=== PATIENT | male | born 1980 | race African-American/Black ===

== ENCOUNTER 2022-03-06 23:09 | Emergency (ER) | payer MEDICAID ==
[~2022-03-06] VITALS: Ht 175.3 cm; Wt 104.0 kg
[2022-03-06] MEDS ORDERED: DICYCLOMINE 10 MG/5 ML ORAL SYR PO STA (23:38)
[2022-03-06] MEDS ORDERED: MAGNESIUM/ALUMINUM HYDROXIDE/SIMETHICONE 30ML UDC PO STA (23:38)
[2022-03-07 01:48] LABS: HEMATOCRIT. 44.8 % (42.0-52.0); HEMOGLOBIN. 14.6 g/dL (14.0-18.0); MEAN CORPUSCULAR HEMOGLOBIN 29.1 pg (28.0-32.0); MEAN CORPUSCULAR VOLUME 89.2 fL (80.0-94.0); MEAN PLATELET VOLUME 8.7 fl (7.4-10.4); PLATELET 302 x1000/uL (130-400); RED BLOOD CELL COUNT 5.02 mill/uL (4.7-6.1); RED CELL DISTRIBUTION WIDTH 14.3 % (11.6-14.6)
[2022-03-07 01:58] LABS: CHLORIDE 108 mEq/L (98-107)
[2022-03-07 01:59] LABS: PROTHROMBIN TIME 10.7 sec (9.6-11.0)
[2022-03-07] MEDS ORDERED: DICYCLOMINE 10 MG/5 ML ORAL SYR PO NR (02:00)
[2022-03-07] MEDS ORDERED: MAGNESIUM/ALUMINUM HYDROXIDE/SIMETHICONE 30ML UDC PO NR (02:00)
[2022-03-07 02:57] LABS: PLATELET ESTIMATE NORMAL
[2022-03-07] MEDS ORDERED: DICY10CA88 MT (05:19)
[2022-03-07 05:50] VITALS: BP 151/99
== END 2022-03-07 05:50 | disposition home or self-care (01) ==
LOC: ER 23:09
DX: R10.13 Epigastric pain (principal); I10 Essential (primary) hypertension; D72.829 Elevated white blood cell count, unspecified
CPT/HCPCS: 36415; 80053; 85025; 99283

== ENCOUNTER 2025-06-17 13:43 | Emergency (ER) | payer MEDICAID, OTHER ==
[~2025-06-17] VITALS: Ht 172.7 cm; Wt 90.0 kg
[~2025-06-17 13:43] MED LIST: DICY-18 MT
[2025-06-17 13:47] VITALS: O2SAT 98
[2025-06-17 14:59] LABS: CLARITY URINE CLEAR (CLEAR); COLOR URINE DARK YELLOW (YELLOW); GLUCOSE URINE NEGATIVE (NEGATIVE); KETONES URINE TRACE (NEGATIVE); LEUKOCYTE ESTERASE URINE NEGATIVE (NEGATIVE); NITRITE URINE NEGATIVE (NEGATIVE); OCCULT BLOOD URINE 2+ (NEGATIVE); PH URINE 5.5 (4.5-8.0); PROTEIN URINE TRACE (NEGATIVE); SPECIFIC GRAVITY URINE 1.026 (1.005-1.030); UROBILINOGEN URINE 1.0 E.U./dL (0.2-1.0)
[2025-06-17 15:09] LABS: *AMPHETAMINES SCREEN URINE NEGATIVE (NEGATIVE); *BARBITURATES SCREEN URINE NEGATIVE (NEGATIVE); *BENZODIAZEPINES SCREEN URINE NEGATIVE (NEGATIVE); *COCAINE SCREEN URINE NEGATIVE (NEGATIVE)
[2025-06-17 15:10] LABS: CANNABINOID URINE SCREEN PRESUMPTIVE POSITIVE (NEGATIVE); ECSTASY MDMA SCREEN URINE NEGATIVE (NEGATIVE); METHADONE URINE SCREEN NEGATIVE (NEGATIVE); OPIATES URINE SCREEN NEGATIVE (NEGATIVE); PHENCYCLIDINE URINE SCREEN NEGATIVE (NEGATIVE)
[2025-06-17 15:14] LABS: BACTERIA URINE NONE SEEN; RBC URINE 0-2 /hpf (0-2); SQUAMOUS EPITHELIAL CELL URINE RARE /lpf (RARE/1+); WBC URINE 0-2 /hpf (0-2); YEAST URINE NONE SEEN
[2025-06-17 17:33] LABS: BASOPHILS % 0.7 % (0.0-2.0); EOSINOPHILS % 0.6 % (0.0-5.0); HEMATOCRIT. 47.7 % (42.0-52.0); HEMOGLOBIN. 15.6 g/dL (14.0-18.0); LYMPHOCYTES % 16.8 % (20.0-50.0); MEAN PLATELET VOLUME 9.6 fl (7.4-10.4); MONOCYTES % 10.1 % (2.0-8.0); NEUTROPHILS % 71.8 % (40.0-76.0); PLATELET 260 x1000/uL (130-400); RED BLOOD CELL COUNT 5.36 mill/uL (4.7-6.1); RED CELL DISTRIBUTION WIDTH 14.5 % (11.6-14.6)
[2025-06-17 17:54] LABS: CREATININE 0.8 mg/dL (0.6-1.3)
[2025-06-17 17:55] LABS: ETHANOL BLOOD < 10 mg/dL (<10); UREA NITROGEN BLOOD 7 mg/dL (9-23)
[2025-06-17 17:56] LABS: ASPARTATE AMINOTRANSFERASE 39 IU/L (<34); BILIRUBIN DIRECT 0.4 mg/dL (<=3.0)
[2025-06-17 17:57] LABS: BILIRUBIN TOTAL 1.9 mg/dL (0.1-1.0); PROTEIN TOTAL 8.3 g/dL (6.0-8.3)
[2025-06-17 18:47] VITALS: BP 121/81; PULSE 80; RESP 14; TEMP 36.6; O2SAT 98
[2025-06-17] MEDS ORDERED: AMOX1TAB16 MT (21:33)
[2025-06-17 22:22] LABS: CREATININE 0.8 mg/dL (0.6-1.3); UREA NITROGEN BLOOD 8 mg/dL (9-23)
[2025-06-17 22:24] LABS: ASPARTATE AMINOTRANSFERASE 17 IU/L (<34); BILIRUBIN TOTAL 2.1 mg/dL (0.1-1.0); PROTEIN TOTAL 7.2 g/dL (6.0-8.3)
== END 2025-06-17 22:44 | disposition home or self-care (01) ==
LOC: ER 13:47 → CMPBEDREQ 06-19 07:54
DX: R10.9 Unspecified abdominal pain (principal); I10 Essential (primary) hypertension; J45.909 Unspecified asthma, uncomplicated; Z79.899 Other long term (current) drug therapy
CPT/HCPCS: 80076; 80053; 80305; 80048; 81003; 80320; 83690; 83735; 85025; 36415; 74176; 99284; Z7610 ×2; A4606; G0480